=== PATIENT | female | born 1970 | race Caucasian/White ===

== ENCOUNTER 2017-08-30 22:04 | Emergency (ER) | payer OTHER ==
[~2017-08-30] VITALS: Ht 154.9 cm; Wt 67.6 kg
[~2017-08-30 22:04] MED LIST: AUGMENTIN 875-1 EACH PO; AZITHROMYCIN250 MG PO; CIPROFLOXACIN500 MG PO; DOXYCYCLINE HY100 MG PO; GUAIFENESIN-CO118 ML PO; GUIATUSS AC SY120 ML PO; KEFLEX500 MG; METRONIDAZOLE500 MG PO; MUPIROCIN22 GM TOP
[2017-08-31] MEDS ORDERED: PROMETH-CODEIN 65 ML PO (02:10)
[2017-08-31] MEDS ORDERED: PREDNISONE10 MG PO (02:10)
[2017-08-31] MEDS ORDERED: PROVENTIL HFA6.7 GM INH (02:10)
== END 2017-08-31 02:18 | disposition home or self-care (01) ==
LOC: ED 22:04
DX: J20.9 Acute bronchitis, unspecified (principal); Z88.2 Allergy status to sulfonamides; Z88.8 Allergy status to other drugs, medicaments and biological substances
CPT/HCPCS: 71046; 94640; 99283; J7512

== ENCOUNTER 2017-11-07 15:07 | Inpatient (IN) | payer OTHER ==
[~2017-11-07] VITALS: Ht 154.9 cm; Wt 56.2 kg
[~2017-11-07 15:07] MED LIST changes: +PREDNISONE10 MG PO; +PROMETH-CODEIN 65 ML PO; +PROVENTIL HFA6.7 GM INH
--- NOTE | 2017-11-08 12:38 | HP ---
[facility] [address], [place] [address] Signed ADMISSION DATE: 11/07/2017 REASON FOR ADMISSION: Acute calculous cholecystitis. HISTORY: This 47-year-old woman is known to me from the past having undergone excision of lower extremity lipoma in the past year or so in the office setting. She presented to the emergency room today where she was evaluated by Dr. Rice for complaints of epigastric and right subcostal pain. This has been going on at least four days. Close inspection and review of her history determines that she has had episodic right upper abdominal pain for many months. She has not noted a particular relationship between meals and the pain, but she has noted a feeling of being "spent" and tired. Evaluation in the emergency room included a clinical examination showing tenderness in the right upper abdomen, which did improve with pain medication. An ultrasound was performed, which showed a single large gallstone wedged in the infundibulum of gallbladder. Her lab studies were remarkably normal with normal liver enzymes and white count of only 5.1. Since admission, she has felt somewhat thirsty, has less pain than before and is otherwise somewhat improved. PAST MEDICAL HISTORY: Does include reactive airways disease, for which she takes albuterol inhaler. She has allergies to sulfa and pseudoephedrine. Sulfa medications cause severe anaphylaxis. She has had endometriosis in the past and laparoscopy to confirm this. SOCIAL HISTORY: She is . She has two grown children. She is in charge of a daycare locally. She does not smoke. She does have medical issue of eczema. REVIEW OF SYSTEMS: Denies any shortness of breath or chest pain. Has had no dysphagia, or dysuria. Denies Electronically Signed By: FLASH HOYT MD 11/08/17 1238 PATIENT NAME: BERE DOMINGUEZ HISTORY AND PHYSICAL DATE OF : 68 REPORT #: [id number] PHYSICIAN: FLASH HOYT MD PCP: NO PRIMARY CARE PHYSICIAN REPORT IS CONFIDENTIAL AND NOT TO BE RELEASED WITHOUT AUTHORIZATION [facility] [address], [place] [address] Signed any hematemesis, or blood per rectum. I do not note a beta HCG on the chart. I will have to affirm her menstrual status. PHYSICAL EXAMINATION: GENERAL: Pleasant white woman who does not look systemically toxic. Trachea is midline. Mucous membranes are rather dry. CHEST: Clear. HEART: Regular without murmur. ABDOMEN: Somewhat obese, but soft overall. There is tenderness in the right subcostal and epigastric area to a lesser extent. She has no sign of ascites. EXTREMITIES: No clubbing, cyanosis, or edema. LABORATORY DATA: Show white count of 5.1, hematocrit 40.7, platelets 205,000. Chem profile is essentially normal, creatinine is 0.81. Liver enzymes are normal including alkaline phosphatase of only 65. Lipase is 24. Urinalysis was canceled by the ER. ASSESSMENT: She has acute calculous cholecystitis. I discussed with her in detail the pathophysiology of this problem, and recommendation of treatment to include cholecystectomy. She is still somewhat dehydrated and needs fluid resuscitation. She is on antibiotic Ancef and will continue on that for the time being. The risks of bleeding, infection, bile duct injury, need for open procedure, need for possible common duct exploration (unlikely) were all reviewed in detail. She understands and wished to proceed. We will plan to do this tomorrow. MD DIMITRI Mathew/SHIRAL /[id number] cc: Jean-Pierre Rice Copies: JEAN-PIERRE RICE Electronically Signed By: FLASH HOYT MD 11/08/17 1238 PATIENT NAME: BERE DOMINGUEZ TERESITA HISTORY AND PHYSICAL DATE OF : 68 REPORT #: [id number] PHYSICIAN: FLASH HOYT MD PCP: NO PRIMARY CARE PHYSICIAN REPORT IS CONFIDENTIAL AND NOT TO BE RELEASED WITHOUT AUTHORIZATION [facility] [address] [place] [id number] Signed ~ Electronically Signed By: FLASH HOYT MD 11/08/17 1238 PATIENT NAME: BERE DOMINGUEZ HISTORY AND PHYSICAL DATE OF : [birth year] REPORT #: [id number] PHYSICIAN: FLASH HOYT MD PCP: NO PRIMARY CARE PHYSICIAN REPORT IS CONFIDENTIAL AND NOT TO BE RELEASED WITHOUT AUTHORIZATION
--- NOTE | 2017-11-09 12:44 | OR ---
[facility] [address], [place] [address] Signed DATE OF OPERATION: 11/08/2017 SURGEON: Flash Hoyt MD PREOPERATIVE DIAGNOSES: 1. Acute calculous cholecystitis. 2. Obesity. POSTOPERATIVE DIAGNOSES: 1. Acute calculous cholecystitis. 2. Obesity. PROCEDURES: 1. Laparoscopic cholecystectomy with intraoperative cholangiogram. 2. Surgeon-directed fluoroscopy. ANESTHESIA: General endotracheal; Suzy Greene CRNA and local 10 mL of 0.25% Marcaine with epinephrine. INDICATION: This 47-year-old somewhat obese white woman presented to the emergency room yesterday with 4 days of increasing right subcostal pain. She has had many months of episodic pain there, but pain was quite severe yesterday. She was evaluated by Dr. Jean-Pierre Rice, emergency room physician and a gallbladder ultrasound was performed showing a thickened gallbladder wall as well as a single large gallstone and a distended gallbladder. I have confirmed those findings on ultrasound. Her liver enzymes were normal. Her beta-HCG was obtained, which was negative. She is admitted at this time after fluid resuscitation and IV antibiotic administration to undergo cholecystectomy preferably by a laparoscopic approach. The risks of bleeding, infection, bile duct injury, need for open procedure, and other unforeseen complications were reviewed in detail. She understands and wished to proceed. FINDINGS: The gallbladder was tense and inflamed. It required decompression. The bile within the gallbladder was dark green. The gallbladder once excised showed a very thickened wall, but no sign of neoplasm proper. There was a large 2.5 cm gallstone wedged in the infundibulum of the gallbladder. The cholangiogram was normal. The liver had mild fatty infiltration. There were no other findings of concern. Electronically Signed By: FLASH HOYT MD 11/09/17 1244 PATIENT NAME: BERE DOMINGUEZ OPERATIVE REPORT DATE OF : 68 REPORT #: [id number] PHYSICIAN: FLASH HOYT MD PCP: NO PRIMARY CARE PHYSICIAN REPORT IS CONFIDENTIAL AND NOT TO BE RELEASED WITHOUT AUTHORIZATION [facility] [address], [place] [address] Signed DESCRIPTION OF PROCEDURE: The patient was brought to the operating room and given a general endotracheal anesthetic. Preoperative antibiotic Ancef was given. Sequential compression device stockings were used and heparin subcutaneously administered. The abdomen was prepared with a chlorhexidine solution and draped sterilely. An infraumbilical incision was made identifying a circumumbilical previous laparoscopy incision. Dissection was carried through the subcutaneous tissue without problem and using an open Renan cannula technique, the abdomen was entered and pneumoperitoneum achieved to a level of 14 mmHg of carbon dioxide gas. Intraabdominal inspection showed no sign of ascites or carcinomatosis. The gallbladder was tensed and distended. Three additional trocars were placed in usual configuration in the subxiphoid, right midclavicular, and right anterior axillary line. Attempts at grasping the gallbladder were unsuccessful due to being so tensed and distended and on that basis, the laparoscopic trocar was used to decompress the apex of the gallbladder of dark bile. This allowed for the puncture site to be grasped and the gallbladder elevated cephalad. There were some adhesions in the area of the infundibulum and obviously, she has had longstanding cholecystitis, more recently acute cholecystitis. The infundibulum was grasped after taking down adhesions to the gallbladder using blunt and electrocautery dissection closely adherent to the gallbladder wall. Cystic arterial branch and the cystic duct itself were identified. Once fully identified, a clip was applied across gallbladder cystic duct junction and a transverse choledochotomy made in the cystic duct. Egress of clear bile was noted. An Rae type cholangiocatheter was placed in the cystic duct and using intraoperative surgeon-directed fluoroscopy, cholangiogram was performed. Free flow of contrast was noted into the biliary tree with prompt emptying into the duodenum. Tethering on the cystic duct in the mid common bile duct was noted and morphine was given to better visualize this area. Morphine did allow for ampullary spasm and retrograde flow into the proximal biliary tree was good. There was no sign of problem and no sign of retained stone or other problem. The catheter was removed and the cystic duct was doubly clipped and divided. The gallbladder was then dissected free in a retrograde fashion using electrocautery. Clips were applied as necessary. The gallbladder was placed in an Endobag and extracted through the infraumbilical port site without problem, opened on the back table and found to have thickened gallbladder wall and a single large oval-shaped gallstone about 2.5 cm in size. Irrigation was undertaken in the subhepatic space. There was no sign of bile leak, bleeding, or other problems. There was a bit of oozing from omentum that had been taken down from the gallbladder bed and some Trey was used to secure bleeding there. The trocars were removed under direct visualization showing no sign of bleeding. The infraumbilical fascial incision was reapproximated with interrupted 0 Vicryl suture. A 10 mL of 0.25% Marcaine with epinephrine was injected locally. The skin was then closed with interrupted 3-0 Vicryl. Steri-Strips were then applied. Electronically Signed By: FLASH HOYT MD 11/09/17 1244 PATIENT NAME: DOMINGUEZBERE RICE OPERATIVE REPORT DATE OF : 68 REPORT #: [id number] PHYSICIAN: FLASH HOYT MD PCP: NO PRIMARY CARE PHYSICIAN REPORT IS CONFIDENTIAL AND NOT TO BE RELEASED WITHOUT AUTHORIZATION [address] [place] [address] Signed The patient was ultimately extubated and transferred to recovery room in good condition having suffered no complications. Sponge, needle, and instrument counts reported as correct x3. MD DIMITRI Mathew/SHIRAL /[id number] cc: Jean-Pierre Rice Copies: JEAN-PIERRE RICE ~ Electronically Signed By: FLASH HOYT MD 11/09/17 1244 PATIENT NAME: BERE DOMINGUEZ OPERATIVE REPORT DATE OF : 68 REPORT #: [id number] PHYSICIAN: FLASH HOYT MD PCP: NO PRIMARY CARE PHYSICIAN REPORT IS CONFIDENTIAL AND NOT TO BE RELEASED WITHOUT AUTHORIZATION
[2017-11-09] MEDS ORDERED: IBUPROFEN600 MG PO (12:47)
[2017-11-09] MEDS ORDERED: MAPAP325 MG PO (12:48)
[2017-11-09] MEDS ORDERED: OXYCODON-ACETA1 EAC2 PO (12:48)
--- NOTE | 2017-11-10 08:46 | DS ---
[facility] [address] [place], [place] [address] Signed ADMISSION DATE: 11/07/2017 DISCHARGE DATE: 11/09/2017 REASON FOR ADMISSION: This 47-year-old, somewhat obese woman presented to the emergency room with right upper abdominal pain and evaluated by Dr. Jean-Pierre Rice, for which gallbladder ultrasound was performed as part of his evaluation, confirming a large gallstone wedge in the gallbladder and thickened gallbladder wall. With her abdominal pain, her tenderness on exam, and these findings, she is admitted for further evaluation and care for acute cholecystitis. PERTINENT PHYSICAL EXAMINATION: GENERAL: Showed a somewhat obese white woman, who looked to be not systemically toxic. NECK: Trachea is midline. CHEST: Clear. HEART: Regular without murmur. ABDOMEN: Obese, but soft. There is tenderness in the right subcostal area, but no masses. No ascites. EXTREMITIES: Show no clubbing, cyanosis, or edema. LABORATORY DATA: A white count is 5.1, hematocrit 40.7, and platelets 205,000. Chem profile was normal. Creatinine 0.81. Liver enzymes normal including alkaline phosphatase of 65. The lipase was 24. Urinalysis was normal in the outpatient clinic (subsequently found to have seen her prior to ER visit). HOSPITAL COURSE: The patient was admitted, given fluid resuscitation, parenteral antibiotics, Ancef, and fluid resuscitated. By November 08, 2017, she was prepared enough for operation and underwent laparoscopic cholecystectomy with intraoperative cholangiogram. She is found to have a very large stone wedged in the infundibulum of the gallbladder. There were no other stones within the gallbladder. The gallbladder wall was quite thickened. There was no sign of neoplasm, however. She had a mildly fatty infiltrated liver. Cholangiogram was normal. Postoperatively, she did have a solid diet the night of operation and has small amount of vomiting. Re-attempted oral intake was well tolerated after that, however. At the time of discharge, she is ambulating well, tolerating a regular diet, has minimal incisional pain, most benefitted by Motrin and Tylenol. She has taken Percocet and uncertain if it is causing any nausea, she prefers not to take in any way. 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 She should lift no more than 20 pounds for the next 2 weeks. She is permitted to shower and should shower on a daily basis. There is slight separation of her skin at the umbilical wound for which additional Steri-Strips were not applied. The wound will heal up on its own without additional intervention other than keeping it clean. DISCHARGE MEDICATIONS: Her discharge medications will include: 1. Motrin 600 mg p.o. q.6 hours p.r.n. pain, #60. 2. Percocet 1 to 2 p.o. q.4 hours p.r.n. pain, #10. 3. Tylenol 650 mg p.o. q.6 hours as needed for pain, #60. She will continue with her albuterol inhaler 2 puffs as needed for sensation of chest tightness. She has discontinued her prednisone and guaifenesin, which has been previously administered as well as promethazine and codeine combination. DISCHARGE DIAGNOSES: 1. Acute calculous cholecystitis, status post laparoscopic cholecystectomy with intraoperative cholangiogram. 2. Obesity. 3. Reactive airways disease. 4. Obesity. FOLLOWUP PLAN: She will return to see me in approximately a month. She will call for an appointment tomorrow. She is instructed regarding her driving restrictions, lifting restrictions so forth. MD DIMITRI Mathew/MODL /[id number] cc: Jean-Pierre Video Editor Electronically Signed By: FLASH HOYT MD 11/10/17 0846 PATIENT NAME: BERE DOMINGUEZ DISCHARGE SUMMARY DATE OF : 68 REPORT #: [id number] PHYSICIAN: FLASH HOYT MD PCP: NO PRIMARY CARE PHYSICIAN REPORT IS CONFIDENTIAL AND NOT TO BE RELEASED WITHOUT AUTHORIZATION [address] [address] Signed Copies: JEAN-PIERRE RICE ~ Electronically Signed By: FLASH HOYT MD 11/10/17 0846 PATIENT NAME: MARLENE DOMINGUEZROXANA LO DISCHARGE SUMMARY DATE OF : 68 REPORT #: [id number] PHYSICIAN: FLASH HOYT MD PCP: NO PRIMARY CARE PHYSICIAN REPORT IS CONFIDENTIAL AND NOT TO BE RELEASED WITHOUT AUTHORIZATION
== END 2017-11-09 14:05 | disposition home or self-care (01) | DRG 419 ==
LOC: ED 15:07 → MS 18:44
PROVIDERS: ADMIT Surgery
PROC: BF101ZZ Fluoroscopy of Bile Ducts using Low Osmolar Contrast (ICD-10-PCS; 2017-11-08)
PROC: 0FT44ZZ Resection of Gallbladder, Percutaneous Endoscopic Approach (ICD-10-PCS; principal; 2017-11-08 10:15)
DX: K80.00 Calculus of gallbladder with acute cholecystitis without obstruction (principal); L30.9 Dermatitis, unspecified; E86.0 Dehydration; K76.0 Fatty (change of) liver, not elsewhere classified; J45.909 Unspecified asthma, uncomplicated; E66.9 Obesity, unspecified; Z79.899 Other long term (current) drug therapy; Z88.2 Allergy status to sulfonamides; Z88.8 Allergy status to other drugs, medicaments and biological substances; Z68.23 Body mass index [BMI] 23.0-23.9, adult
CPT/HCPCS: 00790; 74300; 76705; 80053; 83690; 84703; 85025; 96374; 96375; 99285; J0330; J0690; J1100; J1170; J1644; J1885; J2270; J2405; J2704; J3010; J7120; Q9967

== ENCOUNTER 2018-02-23 17:36 | Emergency (ER) | payer OTHER ==
[~2018-02-23] VITALS: Ht 154.9 cm; Wt 73.0 kg
[~2018-02-23 17:36] MED LIST changes: +IBUPROFEN600 MG PO; +MAPAP325 MG PO; +OXYCODON-ACETA1 EAC2 PO
[2018-02-23] MEDS ORDERED: ZITHROMAX250 MG PO (18:27)
== END 2018-02-23 18:40 | disposition home or self-care (01) ==
LOC: ED 17:36
DX: J06.9 Acute upper respiratory infection, unspecified (principal); Z88.2 Allergy status to sulfonamides; Z88.8 Allergy status to other drugs, medicaments and biological substances
CPT/HCPCS: 99283

== ENCOUNTER 2019-06-13 20:24 | Emergency (ER) | payer OTHER ==
[~2019-06-13] VITALS: Ht 154.9 cm; Wt 73.0 kg
[~2019-06-13 20:24] MED LIST changes: +ZITHROMAX250 MG PO
[2019-06-13] MEDS ORDERED: DOXYCYCLINE HY100 MG PO (21:40)
[2019-06-13] MEDS ORDERED: PREDNISONE20 MG PO (21:40)
[2019-06-13] MEDS ORDERED: IPRAT-ALBUT 0.5-3 ML INH (21:40)
== END 2019-06-13 21:53 | disposition home or self-care (01) ==
LOC: ED 20:24
DX: J20.9 Acute bronchitis, unspecified (principal); J45.909 Unspecified asthma, uncomplicated; Z88.2 Allergy status to sulfonamides; Z88.8 Allergy status to other drugs, medicaments and biological substances
CPT/HCPCS: 71046; 99283-25; J7512

== ENCOUNTER 2020-05-19 02:25 | Emergency (ER) | payer BC ==
[~2020-05-19] VITALS: Ht 154.9 cm; Wt 73.0 kg
[~2020-05-19 02:25] MED LIST changes: +IPRAT-ALBUT 0.5-3 ML INH; +PREDNISONE20 MG PO
[2020-05-19] MEDS ORDERED: MONTELUKAST SOD10 MG PO (02:46)
[2020-05-19] MEDS ORDERED: AUGMENTIN 875-1 EACH PO (03:34)
== END 2020-05-19 03:45 | disposition home or self-care (01) ==
LOC: ED 02:25
DX: S61.452A Open bite of left hand, initial encounter (principal); L08.9 Local infection of the skin and subcutaneous tissue, unspecified; Z88.2 Allergy status to sulfonamides; Z88.8 Allergy status to other drugs, medicaments and biological substances; Z79.899 Other long term (current) drug therapy; W55.01XA Bitten by cat, initial encounter
CPT/HCPCS: 99283

== ENCOUNTER 2021-08-16 18:44 | Emergency (ER) | payer BC ==
[~2021-08-16] VITALS: Ht 154.9 cm; Wt 80.3 kg
[~2021-08-16 18:44] MED LIST changes: +MONTELUKAST SOD10 MG PO
[2021-08-16] MEDS ORDERED: CYCLOBENZAPRINE5 MG PO (19:54)
[2021-08-16] MEDS ORDERED: medrol dose pack (21:01)
--- NOTE | 2021-08-18 15:16 | EKG ---
[facility] [address] [facility] [place], [place] [address] Signed Normal sinus rhythm Nonspecific T wave abnormality Abnormal ECG No previous ECGs available Confirmed by SANDRA SWARTZ MD ([id number]) on 08/18/2021 3:16:40 PM Electronically Signed By: SANDRA WSARTZ MD 08/18/21 1516 PATIENT NAME: BERE DOMINGUEZLINE Electrocardiogram DATE OF : 68 PHYSICIAN: SANDRA SWARTZ MD REPORT #: [id number] REPORT IS CONFIDENTIAL AND NOT TO BE RELEASED WITHOUT AUTHORIZATION
== END 2021-08-16 21:10 | disposition home or self-care (01) ==
LOC: ED 18:44
DX: R07.89 Other chest pain (principal); J45.909 Unspecified asthma, uncomplicated; Z88.2 Allergy status to sulfonamides; Z88.8 Allergy status to other drugs, medicaments and biological substances; Z79.899 Other long term (current) drug therapy; Z79.51 Long term (current) use of inhaled steroids
CPT/HCPCS: 36415; 71045; 80048; 84484; 85025; 86140; 93005; 93010; 99285-25

== ENCOUNTER 2024-01-22 17:46 | Emergency (ER) | payer OTHER ==
[~2024-01-22] VITALS: Ht 154.9 cm; Wt 79.9 kg
[~2024-01-22 17:46] MED LIST changes: +CYCLOBENZAPRINE5 MG PO; +medrol dose pack
[2024-01-22] MEDS ORDERED: NEURONTIN100 MG PO (18:28)
[2024-01-22 18:36] LABS: BILIRUBIN, URINE NEGATIVE (negative); BLOOD/HGB, URINE NEGATIVE (Negative); KETONE, URINE NEGATIVE (Negative); LEUK ESTERASE, URINE TRACE (negative); NITRITE, URINE NEGATIVE (negative); PH, URINE 5.5 (5-7)
[2024-01-22 18:44] LABS: BACTERIA, URINE NONE SEEN /hpf (negative); CASTS, URINE NONE SEEN \\lpf; COLLECTION TYPE, URINE CLEAN CATCH; CRYSTALS, URINE NONE SEEN (0-1+); EPITHELIAL CELLS, URINE SQUAMOUS 1+ /lpf (0-1+); RED BLOOD CELLS, URINE 0-1 /hpf (0-5); REFLEX CULTURE, URINE Yes (No)
[2024-01-22 18:53] LABS: ALBUMIN 3.5 g/dL (3.4-5.0); ALBUMIN/GLOBULIN RATIO 1.06 (1.1-2.4); ANION GAP 12.5 (7-21); BILIRUBIN, TOTAL 0.3 ng/dL (0.2-1.0); BUN/CREATININE RATIO 22.22 (6.0-28.6); CALCIUM 9.2 mg/dL (8.5-10.1); CREATININE, SERUM 0.99 mg/dL (0.55-1.02); POTASSIUM 4.5 mmol/L (3.5-5.1); PROTEIN, TOTAL 6.8 g/dL (6.4-8.2)
[2024-01-22 19:01] LABS: BASOPHILS 0.8 % (0-2); EOSINOPHILS 2.4 % (0-6); HEMATOCRIT 39.7 % (35.0-50.0); HEMOGLOBIN 13.3 g/dL (12.0-18.0); LYMPHOCYTES 32.2 % (24-44); MCHC 33.5 g/dl (30-36); MCV 89.4 fl (81-99); NEUTROPHILS 58.6 % (39-80); PLATELET COUNT 206 K/uL (140-440); RBC 4.44 M/ul (4.3-5.7); RDW 13.4 (10.5-15.0)
[2024-01-22] MEDS ORDERED: CEPHALEXIN500 MG PO (19:29)
[2024-01-22] MEDS ORDERED: CEPHALEXIN MONOHYDRATE 500 MG CAP PO ONE (19:30)
[2024-01-22 19:42] VITALS: BP 123/63
== END 2024-01-22 19:42 | disposition home or self-care (01) ==
LOC: ED 17:46
PROVIDERS: Emergency Medicine
DX: N39.0 Urinary tract infection, site not specified (principal); J45.909 Unspecified asthma, uncomplicated; Z88.2 Allergy status to sulfonamides; Z88.8 Allergy status to other drugs, medicaments and biological substances; Z79.899 Other long term (current) drug therapy
CPT/HCPCS: 36415; 80053; 81001; 83690; 85025; 87088; 99284; A9270